=== PATIENT | male | born 1950 | race Native Hawaiian/Other Pacific Islander ===

== ENCOUNTER 2021-03-31 05:19 | Emergency (ER) | payer OTHER ==
[~2021-03-31] VITALS: Ht 177.8 cm; Wt 74.4 kg
[2021-03-31 06:33] VITALS: BP 128/68; TEMP 97.7
== END 2021-03-31 06:33 | disposition home or self-care (01) ==
LOC: ED 05:19
DX: S69.82XA Other specified injuries of left wrist, hand and finger(s), initial encounter (principal); S61.412A Laceration without foreign body of left hand, initial encounter; W23.0XXA Caught, crushed, jammed, or pinched between moving objects, initial encounter; Y92.89 Other specified places as the place of occurrence of the external cause
CPT/HCPCS: 90471; 90715; 96372; 99283; J0690; J1885

== ENCOUNTER 2022-05-22 08:20 | Outpatient (CLI) | payer OTHER ==
[2022-05-22 09:00] LABS: PLATELET COUNT 314 K/uL (142-355)
[2022-05-22 09:09] LABS: POTASSIUM 4.5 mmol/L (3.6-5.2)
== END 2022-05-22 18:52 | disposition home or self-care (01) ==
LOC: LABW 08:20
PROVIDERS: ATTEND Nurse Practitioner Family
DX: Z01.818 Encounter for other preprocedural examination (principal)
CPT/HCPCS: 36415; 80053; 85027